=== PATIENT | male | born 1995 | race Caucasian/White ===

== ENCOUNTER 2021-05-07 19:02 | Inpatient (IN) | payer OTHER ==
[2021-05-07 21:18] VITALS: BMI 24.7
[2021-05-07] MEDS ORDERED: diazePAM 5 MG TABLET PO PRN (21:55)
[2021-05-07] MEDS ORDERED: METHADONE HCL 10 MG TABLET (FOR DETOX USE ONLY) PO ONE (21:55)
[2021-05-07] MEDS ORDERED: cloNIDine HCL 0.1 MG TABLET PO PRN (21:55)
[2021-05-07] MEDS ORDERED: hydrOXYzine PAMOATE 25 MG CAPSULE (FP) PO PRN (21:55)
[2021-05-07] MEDS ORDERED: MAGNESIUM CITRATE 300 ML BOTTLE PO PRN (21:55)
[2021-05-07] MEDS ORDERED: ACETAMINOPHEN 325 MG TABLET (FP) PO PRN ×2 (21:55)
[2021-05-07] MEDS ORDERED: IBUPROFEN 400 MG TABLET (FP) PO PRN (21:55)
[2021-05-07] MEDS ORDERED: MAGNESIUM HYDROX 2400MG/30ML ORAL SUSPENSION 30 ML CUP PO PRN (21:55)
[2021-05-07] MEDS ORDERED: ONDANSETRON *ODT* 4 MG TABLET SL PRN (21:55)
[2021-05-07] MEDS ORDERED: MAG HYDROX/AL HYDROX/SIMETH 30 ML UNIT-DOSE CUP PO PRN (21:55)
[2021-05-07] MEDS ORDERED: METHOCARBAMOL 500 MG TABLET PO PRN (21:55)
[2021-05-07] MEDS ORDERED: MENTHOL/PHENOL 1 EACH UD MM PRN (21:55)
[2021-05-07] MEDS ORDERED: BISMUTH SUBSALICYLATE 524 MG/30 ML PO PRN (21:55)
[2021-05-07] MEDS: THIAMINE HCL 100 MG TABLET (FP) PO SCH (22:48)
[2021-05-07] MEDS: hydrOXYzine PAMOATE 25 MG CAPSULE (FP) PO SCH (22:53)
[2021-05-07] MEDS: diazePAM 5 MG TABLET PO SCH (22:54)
[2021-05-07] MEDS: MELATONIN 5 MG TABLETS PO SCH (22:55)
[2021-05-07] MEDS: NICOTINE POLACRILEX 2 MG GUM BUC PRN (23:41)
[2021-05-08] MEDS: hydrOXYzine PAMOATE 25 MG CAPSULE (FP) PO SCH ×5 (05:34→22:14)
[2021-05-08] MEDS: diazePAM 5 MG TABLET PO SCH ×4 (05:34→22:14)
[2021-05-08] MEDS: NICOTINE POLACRILEX 2 MG GUM BUC PRN ×2 (05:36→13:07)
[2021-05-08] MEDS ORDERED: METHADONE HCL 5 MG TABLET (FOR DETOX USE ONLY) ONE (09:30)
[2021-05-08] MEDS ORDERED: METHADONE HCL 10 MG TABLET (FOR DETOX USE ONLY) ONE (09:30)
[2021-05-08] MEDS ORDERED: METHADONE (DETOX) 20 MG, METHADONE (DETOX) 5 MG PO ONE (10:00)
[2021-05-08] MEDS: PRENATAL VITAMINS W/ FOLIC ACID TABLET (FP) PO SCH (10:04)
[2021-05-08] MEDS: NICOTINE 21 MG/24 HOURS TOPICAL PATCH TD SCH (10:04)
[2021-05-08] MEDS ORDERED: ONDANSETRON *ODT* 4 MG TABLET SL ONE (10:59)
[2021-05-08] MEDS ORDERED: DICYCLOMINE HCL 10 MG CAPSULE PO ONE (11:00)
[2021-05-08 11:07] LABS: HEMATOCRIT 37.6 % (35.4-49); HEMOGLOBIN 12.6 GM/dL (11.7-16.9); MCH 27.9 pg (25.7-33.7); MCHC 33.5 g/dl (32.0-35.9); MEAN PLT VOLUME 8.5 fl (7.5-11.1); PLATELET COUNT 204 10^3/uL (134-434); RBC 4.53 M/mm3 (4.00-5.60); RDW 13.7 % (11.9-15.9); WHITE BLOOD COUNT 5.3 K/mm3 (4.0-10.0)
[2021-05-08 11:15] LABS: CALCIUM 8.6 mg/dL (8.5-10.1)
[2021-05-08 11:16] LABS: ALBUMIN 3.4 g/dl (3.4-5.0); BLOOD UREA NITROGEN 11.4 mg/dL (7-18)
[2021-05-08 11:18] LABS: BILIRUBIN,TOTAL 0.2 mg/dL (0.2-1); TOT PROT 6.4 g/dl (6.4-8.2)
[2021-05-08 11:20] LABS: CREATININE 0.8 mg/dL (0.55-1.3)
[2021-05-08] MEDS ORDERED: GABAPENTIN 400 MG CAPSULE PO SCH (14:00)
[2021-05-08] MEDS: THIAMINE HCL 100 MG TABLET (FP) PO SCH (22:13)
[2021-05-08] MEDS: MELATONIN 5 MG TABLETS PO SCH (22:13)
[2021-05-09] MEDS: diazePAM 5 MG TABLET PO SCH ×3 (06:41→22:43)
[2021-05-09] MEDS: hydrOXYzine PAMOATE 25 MG CAPSULE (FP) PO SCH ×5 (06:42→22:45)
[2021-05-09] MEDS ORDERED: METHADONE HCL 10 MG TABLET (FOR DETOX USE ONLY) PO ONE (10:00)
[2021-05-09] MEDS: PRENATAL VITAMINS W/ FOLIC ACID TABLET (FP) PO SCH (10:40)
[2021-05-09] MEDS: NICOTINE 21 MG/24 HOURS TOPICAL PATCH TD SCH (10:44)
[2021-05-09] MEDS ORDERED: QUEtiapine FUMARATE 100 MG TABLET (FP) PO SCH (22:00)
[2021-05-09] MEDS: THIAMINE HCL 100 MG TABLET (FP) PO SCH (22:43)
[2021-05-09] MEDS: QUEtiapine FUMARATE 200 MG TABLET PO SCH (22:43)
[2021-05-09] MEDS: MELATONIN 5 MG TABLETS PO SCH (22:45)
[2021-05-10] MEDS: diazePAM 5 MG TABLET PO SCH ×2 (07:21→18:01)
[2021-05-10] MEDS: hydrOXYzine PAMOATE 25 MG CAPSULE (FP) PO SCH ×5 (07:21→22:31)
[2021-05-10] MEDS ORDERED: METHADONE HCL 5 MG TABLET (FOR DETOX USE ONLY) ONE (09:17)
[2021-05-10] MEDS ORDERED: METHADONE HCL 10 MG TABLET (FOR DETOX USE ONLY) ONE (09:18)
[2021-05-10] MEDS ORDERED: METHADONE (DETOX) 10 MG, METHADONE (DETOX) 5 MG PO ONE (10:00)
[2021-05-10] MEDS: PRENATAL VITAMINS W/ FOLIC ACID TABLET (FP) PO SCH (11:18)
[2021-05-10] MEDS: NICOTINE 21 MG/24 HOURS TOPICAL PATCH TD SCH (11:19)
[2021-05-10] MEDS: GABAPENTIN 300 MG CAPSULE PO SCH ×2 (14:08→22:31)
[2021-05-10] MEDS: QUEtiapine FUMARATE 200 MG TABLET PO SCH (22:31)
[2021-05-10] MEDS: THIAMINE HCL 100 MG TABLET (FP) PO SCH (22:31)
[2021-05-10] MEDS: MELATONIN 5 MG TABLETS PO SCH (23:46)
[2021-05-11] MEDS ORDERED: diazePAM 5 MG TABLET PO ONE (06:00)
[2021-05-11] MEDS: GABAPENTIN 300 MG CAPSULE PO SCH ×3 (06:56→22:14)
[2021-05-11] MEDS: hydrOXYzine PAMOATE 25 MG CAPSULE (FP) PO SCH ×5 (07:34→22:14)
[2021-05-11] MEDS ORDERED: METHADONE HCL 10 MG TABLET (FOR DETOX USE ONLY) PO ONE (10:00)
[2021-05-11] MEDS: NICOTINE 21 MG/24 HOURS TOPICAL PATCH TD SCH (10:41)
[2021-05-11] MEDS: PRENATAL VITAMINS W/ FOLIC ACID TABLET (FP) PO SCH (10:42)
[2021-05-11] MEDS: QUEtiapine FUMARATE 200 MG TABLET PO SCH (22:13)
[2021-05-11] MEDS: THIAMINE HCL 100 MG TABLET (FP) PO SCH (22:13)
[2021-05-11] MEDS: MELATONIN 5 MG TABLETS PO SCH (22:14)
[2021-05-11] MEDS: NICOTINE POLACRILEX 2 MG GUM BUC PRN (22:14)
[2021-05-12 05:59] VITALS: TEMP 97.7
[2021-05-12] MEDS ORDERED: METHADONE HCL 5 MG TABLET (FOR DETOX USE ONLY) PO ONE (06:00)
[2021-05-12] MEDS: hydrOXYzine PAMOATE 25 MG CAPSULE (FP) PO SCH ×4 (08:04→17:28)
[2021-05-12] MEDS: GABAPENTIN 300 MG CAPSULE PO SCH ×2 (08:04→14:26)
[2021-05-12] MEDS: PRENATAL VITAMINS W/ FOLIC ACID TABLET (FP) PO SCH (10:12)
[2021-05-12] MEDS: NICOTINE 21 MG/24 HOURS TOPICAL PATCH TD SCH (10:12)
[2021-05-12 12:56] VITALS: BP 104/60; PULSE 70
== END 2021-05-12 05:04 | disposition other institution (70) | DRG 773 ==
LOC: YASAS 19:02 → Y6N 22:22
PROVIDERS: ADMIT Allergy & Immunology; ATTEND Allergy & Immunology
PROC: HZ2ZZZZ Detoxification Services for Substance Abuse Treatment (ICD-10-PCS; principal; 2021-05-07)
DX: F11.23 Opioid dependence with withdrawal (principal); F13.230 Sedative, hypnotic or anxiolytic dependence with withdrawal, uncomplicated; F14.20 Cocaine dependence, uncomplicated; F12.20 Cannabis dependence, uncomplicated; F15.10 Other stimulant abuse, uncomplicated; F17.210 Nicotine dependence, cigarettes, uncomplicated; F19.282 Other psychoactive substance dependence with psychoactive substance-induced sleep disorder; F19.24 Other psychoactive substance dependence with psychoactive substance-induced mood disorder; F31.81 Bipolar II disorder; F90.9 Attention-deficit hyperactivity disorder, unspecified type; M54.5 Low back pain; G89.29 Other chronic pain; Z56.0 Unemployment, unspecified; Z59.0 Homelessness
CPT/HCPCS: 36415; 80053; 85027; 86780; C9803; Q0162; U0003; U0005

== ENCOUNTER 2021-05-12 17:11 | Inpatient (IN) | payer OTHER ==
[2021-05-12] MEDS ORDERED: guaiFENesin 200 MG/10 ML 10 ML UNIT-DOSE CUPS PO PRN (18:03)
[2021-05-12] MEDS ORDERED: P-EPHED 60MG/TRIPROLIDI 2.5MG TABLET PO PRN (18:03)
[2021-05-12] MEDS ORDERED: MENTHOL/PHENOL 1 EACH UD MM PRN (18:03)
[2021-05-12] MEDS ORDERED: LOPERAMIDE HCL 2 MG CAPSULE PO PRN (18:03)
[2021-05-12] MEDS ORDERED: MAG HYDROX/AL HYDROX/SIMETH 30 ML UNIT-DOSE CUP PO PRN (18:03)
[2021-05-12] MEDS ORDERED: IBUPROFEN 400 MG TABLET (FP) PO PRN (18:03)
[2021-05-12] MEDS ORDERED: MAGNESIUM HYDROX 2400MG/30ML ORAL SUSPENSION 30 ML CUP PO PRN (18:03)
[2021-05-12] MEDS ORDERED: MAGNESIUM CITRATE 300 ML BOTTLE PO PRN (18:03)
[2021-05-12] MEDS ORDERED: QUEtiapine FUMARATE 200 MG TABLET PO ONE (21:51)
[2021-05-12] MEDS: MELATONIN 5 MG TABLETS PO SCH (22:00)
[2021-05-12] MEDS: THIAMINE HCL 100 MG TABLET (FP) PO SCH (22:00)
[2021-05-13] MEDS: PRENATAL VITAMINS W/ FOLIC ACID TABLET (FP) PO SCH (09:56)
[2021-05-13 11:25] LABS: HIV INTERPRETATION NEGATIVE (NEGATIVE)
[2021-05-13 13:46] LABS: URINE APPEARANCE CLEAR; URINE BILIRUBIN NEGATIVE (NEGATIVE); URINE COLOR YELLOW; URINE GLUCOSE (UA) NEGATIVE (NEGATIVE); URINE KETONE NEGATIVE (NEGATIVE); URINE LEUK ESTERASE NEGATIVE (NEGATIVE); URINE NITRITE NEGATIVE (NEGATIVE); URINE PROTEIN NEGATIVE (NEGATIVE); URINE UROBILINOGEN 0.2 mg/dL (0.2-1.0)
[2021-05-13] MEDS: GABAPENTIN 300 MG CAPSULE PO SCH ×2 (13:59→21:46)
[2021-05-13] MEDS ORDERED: hydrOXYzine PAMOATE 25 MG CAPSULE (FP) PO PRN (14:01)
[2021-05-13] MEDS: NICOTINE POLACRILEX 2 MG GUM BUC PRN (21:46)
[2021-05-13] MEDS: MELATONIN 5 MG TABLETS PO SCH (21:46)
[2021-05-13] MEDS: QUEtiapine FUMARATE 200 MG TABLET PO SCH (21:46)
[2021-05-13] MEDS: THIAMINE HCL 100 MG TABLET (FP) PO SCH (21:46)
[2021-05-14] MEDS: GABAPENTIN 300 MG CAPSULE PO SCH ×3 (06:09→21:45)
[2021-05-14] MEDS: NICOTINE POLACRILEX 2 MG GUM BUC PRN (06:10)
[2021-05-14] MEDS: PRENATAL VITAMINS W/ FOLIC ACID TABLET (FP) PO SCH (10:07)
[2021-05-14] MEDS: hydrOXYzine PAMOATE 50 MG CAPSULE (FP) PO PRN ×3 (10:07→21:45)
[2021-05-14] MEDS: NICOTINE 21 MG/24 HOURS TOPICAL PATCH TD SCH (11:38)
[2021-05-14] MEDS: THIAMINE HCL 100 MG TABLET (FP) PO SCH (21:43)
[2021-05-14] MEDS: QUEtiapine FUMARATE 200 MG TABLET PO SCH (21:43)
[2021-05-14] MEDS: SUVOREXANT 10 MG TABLET PO PRN (21:47)
[2021-05-15] MEDS: hydrOXYzine PAMOATE 50 MG CAPSULE (FP) PO PRN ×3 (06:35→21:37)
[2021-05-15] MEDS: GABAPENTIN 300 MG CAPSULE PO SCH ×3 (06:35→21:38)
[2021-05-15] MEDS: PRENATAL VITAMINS W/ FOLIC ACID TABLET (FP) PO SCH (10:03)
[2021-05-15] MEDS: NICOTINE 21 MG/24 HOURS TOPICAL PATCH TD SCH (10:03)
[2021-05-15] MEDS: ACETAMINOPHEN 325 MG TABLET (FP) PO PRN (13:43)
[2021-05-15] MEDS: QUEtiapine FUMARATE 200 MG TABLET PO SCH (21:37)
[2021-05-15] MEDS: THIAMINE HCL 100 MG TABLET (FP) PO SCH (21:38)
[2021-05-15] MEDS: SUVOREXANT 10 MG TABLET PO PRN (21:39)
[2021-05-16] MEDS: hydrOXYzine PAMOATE 50 MG CAPSULE (FP) PO PRN ×3 (06:39→21:40)
[2021-05-16] MEDS: GABAPENTIN 300 MG CAPSULE PO SCH ×3 (06:39→21:40)
[2021-05-16] MEDS: PRENATAL VITAMINS W/ FOLIC ACID TABLET (FP) PO SCH (10:18)
[2021-05-16] MEDS: NICOTINE 21 MG/24 HOURS TOPICAL PATCH TD SCH (10:18)
[2021-05-16] MEDS: SUVOREXANT 10 MG TABLET PO PRN (21:40)
[2021-05-16] MEDS: THIAMINE HCL 100 MG TABLET (FP) PO SCH (21:40)
[2021-05-16] MEDS: QUEtiapine FUMARATE 200 MG TABLET PO SCH (21:40)
[2021-05-16] MEDS ORDERED: SUVOREXANT 10 MG TABLET PO PRN (22:00)
[2021-05-17] MEDS: hydrOXYzine PAMOATE 50 MG CAPSULE (FP) PO PRN ×3 (06:18→21:59)
[2021-05-17] MEDS: GABAPENTIN 300 MG CAPSULE PO SCH ×3 (06:18→21:55)
[2021-05-17] MEDS: PRENATAL VITAMINS W/ FOLIC ACID TABLET (FP) PO SCH (10:43)
[2021-05-17] MEDS: NICOTINE 21 MG/24 HOURS TOPICAL PATCH TD SCH (10:44)
[2021-05-17] MEDS: THIAMINE HCL 100 MG TABLET (FP) PO SCH (21:55)
[2021-05-17] MEDS: QUEtiapine FUMARATE 200 MG TABLET PO SCH (21:55)
[2021-05-18] MEDS: GABAPENTIN 300 MG CAPSULE PO SCH ×3 (07:14→21:27)
[2021-05-18] MEDS: NICOTINE 21 MG/24 HOURS TOPICAL PATCH TD SCH (10:18)
[2021-05-18] MEDS: PRENATAL VITAMINS W/ FOLIC ACID TABLET (FP) PO SCH (10:18)
[2021-05-18] MEDS: hydrOXYzine PAMOATE 50 MG CAPSULE (FP) PO PRN ×2 (10:19→21:29)
[2021-05-18] MEDS: THIAMINE HCL 100 MG TABLET (FP) PO SCH (21:27)
[2021-05-18] MEDS: QUEtiapine FUMARATE 200 MG TABLET PO SCH (21:27)
[2021-05-19] MEDS: hydrOXYzine PAMOATE 50 MG CAPSULE (FP) PO PRN ×4 (06:15→21:44)
[2021-05-19] MEDS: GABAPENTIN 300 MG CAPSULE PO SCH ×3 (06:15→21:45)
[2021-05-19] MEDS: NICOTINE 21 MG/24 HOURS TOPICAL PATCH TD SCH (10:10)
[2021-05-19] MEDS: PRENATAL VITAMINS W/ FOLIC ACID TABLET (FP) PO SCH (10:10)
[2021-05-19] MEDS: THIAMINE HCL 100 MG TABLET (FP) PO SCH (21:44)
[2021-05-19] MEDS: NICOTINE POLACRILEX 2 MG GUM BUC PRN (21:45)
[2021-05-19] MEDS: QUEtiapine FUMARATE 200 MG TABLET PO SCH (21:45)
[2021-05-20] MEDS: hydrOXYzine PAMOATE 50 MG CAPSULE (FP) PO PRN ×2 (06:46→14:04)
[2021-05-20] MEDS: GABAPENTIN 300 MG CAPSULE PO SCH ×3 (06:46→22:05)
[2021-05-20] MEDS: NICOTINE 21 MG/24 HOURS TOPICAL PATCH TD SCH (11:23)
[2021-05-20] MEDS: PRENATAL VITAMINS W/ FOLIC ACID TABLET (FP) PO SCH (11:24)
[2021-05-20] MEDS: QUEtiapine FUMARATE 200 MG TABLET PO SCH (22:05)
[2021-05-20] MEDS: THIAMINE HCL 100 MG TABLET (FP) PO SCH (22:05)
[2021-05-20] MEDS: traZODone HCL 100 MG TABLET (FP) PO SCH (22:06)
[2021-05-20] MEDS: NICOTINE POLACRILEX 2 MG GUM BUC PRN (22:07)
[2021-05-21] MEDS: hydrOXYzine PAMOATE 50 MG CAPSULE (FP) PO PRN ×4 (04:05→21:47)
[2021-05-21] MEDS: GABAPENTIN 300 MG CAPSULE PO SCH ×3 (07:02→21:47)
[2021-05-21] MEDS: NICOTINE 21 MG/24 HOURS TOPICAL PATCH TD SCH (10:34)
[2021-05-21] MEDS: PRENATAL VITAMINS W/ FOLIC ACID TABLET (FP) PO SCH (10:34)
[2021-05-21] MEDS: THIAMINE HCL 100 MG TABLET (FP) PO SCH (21:47)
[2021-05-21] MEDS: QUEtiapine FUMARATE 200 MG TABLET PO SCH (21:47)
[2021-05-21] MEDS: traZODone HCL 100 MG TABLET (FP) PO SCH (21:47)
[2021-05-22] MEDS: GABAPENTIN 300 MG CAPSULE PO SCH ×3 (06:47→21:40)
[2021-05-22] MEDS: ACETAMINOPHEN 325 MG TABLET (FP) PO PRN (06:48)
[2021-05-22] MEDS: NICOTINE 21 MG/24 HOURS TOPICAL PATCH TD SCH (11:38)
[2021-05-22] MEDS: PRENATAL VITAMINS W/ FOLIC ACID TABLET (FP) PO SCH (11:38)
[2021-05-22] MEDS: hydrOXYzine PAMOATE 50 MG CAPSULE (FP) PO PRN ×2 (14:26→21:40)
[2021-05-22] MEDS: NICOTINE POLACRILEX 2 MG GUM BUC PRN (14:27)
[2021-05-22] MEDS: THIAMINE HCL 100 MG TABLET (FP) PO SCH (21:39)
[2021-05-22] MEDS: traZODone HCL 100 MG TABLET (FP) PO SCH (21:40)
[2021-05-22] MEDS: QUEtiapine FUMARATE 200 MG TABLET PO SCH (21:40)
[2021-05-23] MEDS: hydrOXYzine PAMOATE 50 MG CAPSULE (FP) PO PRN ×3 (06:33→14:55)
[2021-05-23] MEDS: GABAPENTIN 300 MG CAPSULE PO SCH ×3 (06:33→21:24)
[2021-05-23] MEDS: PRENATAL VITAMINS W/ FOLIC ACID TABLET (FP) PO SCH (10:17)
[2021-05-23] MEDS: NICOTINE 21 MG/24 HOURS TOPICAL PATCH TD SCH (10:17)
[2021-05-23] MEDS: NICOTINE POLACRILEX 2 MG GUM BUC PRN (14:56)
[2021-05-23] MEDS: traZODone HCL 100 MG TABLET (FP) PO SCH (21:24)
[2021-05-23] MEDS: THIAMINE HCL 100 MG TABLET (FP) PO SCH (21:24)
[2021-05-23] MEDS: QUEtiapine FUMARATE 200 MG TABLET PO SCH (21:24)
[2021-05-24 07:25] VITALS: BP 116/79
[2021-05-24] MEDS: GABAPENTIN 300 MG CAPSULE PO SCH ×3 (07:33→21:43)
[2021-05-24] MEDS: NICOTINE 21 MG/24 HOURS TOPICAL PATCH TD SCH (11:35)
[2021-05-24] MEDS: PRENATAL VITAMINS W/ FOLIC ACID TABLET (FP) PO SCH (11:35)
[2021-05-24] MEDS: hydrOXYzine PAMOATE 50 MG CAPSULE (FP) PO PRN ×2 (14:16→21:43)
[2021-05-24] MEDS: THIAMINE HCL 100 MG TABLET (FP) PO SCH (21:43)
[2021-05-24] MEDS: QUEtiapine FUMARATE 200 MG TABLET PO SCH (21:43)
[2021-05-24] MEDS: traZODone HCL 100 MG TABLET (FP) PO SCH (21:43)
[2021-05-25] MEDS: GABAPENTIN 300 MG CAPSULE PO SCH ×3 (06:51→21:30)
[2021-05-25] MEDS: NICOTINE 21 MG/24 HOURS TOPICAL PATCH TD SCH (10:45)
[2021-05-25] MEDS: PRENATAL VITAMINS W/ FOLIC ACID TABLET (FP) PO SCH (10:45)
[2021-05-25] MEDS: hydrOXYzine PAMOATE 50 MG CAPSULE (FP) PO PRN ×2 (15:06→21:32)
[2021-05-25] MEDS: QUEtiapine FUMARATE 200 MG TABLET PO SCH (21:30)
[2021-05-25] MEDS: traZODone HCL 100 MG TABLET (FP) PO SCH (21:30)
[2021-05-25] MEDS: THIAMINE HCL 100 MG TABLET (FP) PO SCH (21:30)
[2021-05-26] MEDS: GABAPENTIN 300 MG CAPSULE PO SCH (05:59)
[2021-05-26 07:29] VITALS: PULSE 78; TEMP 98.5
[2021-05-26 10:01] LABS: SARS-CoV-2 NAA NOT DETECTED
== END 2021-05-26 09:48 | disposition home or self-care (01) | DRG 772 ==
LOC: YASAS 17:11 → Y5N 17:12
PROVIDERS: ADMIT Allergy & Immunology; ATTEND Allergy & Immunology
PROC: HZ42ZZZ Group Counseling for Substance Abuse Treatment, Cognitive-Behavioral (ICD-10-PCS; principal; 2021-05-12)
DX: F11.20 Opioid dependence, uncomplicated (principal); F14.20 Cocaine dependence, uncomplicated; F13.20 Sedative, hypnotic or anxiolytic dependence, uncomplicated; F12.20 Cannabis dependence, uncomplicated; F15.10 Other stimulant abuse, uncomplicated; F17.210 Nicotine dependence, cigarettes, uncomplicated; F19.282 Other psychoactive substance dependence with psychoactive substance-induced sleep disorder; F19.24 Other psychoactive substance dependence with psychoactive substance-induced mood disorder; F31.81 Bipolar II disorder; F90.9 Attention-deficit hyperactivity disorder, unspecified type; M54.5 Low back pain; G89.29 Other chronic pain; Z56.0 Unemployment, unspecified; Z59.0 Homelessness
CPT/HCPCS: 36415; 81003; 86803; 87389; C9803; U0003; U0005